=== PATIENT | male | born 1950 | race Caucasian/White ===

== ENCOUNTER 2019-04-01 16:40 | Emergency (ER) | payer MEDICARE, MEDICAID ==
[~2019-04-01] VITALS: Ht 175.3 cm; Wt 86.0 kg
[2019-04-01] MEDS ORDERED: MORPHINE SULFATE 4 MG/ML CPJ (NOT FOR IM USE) IV STA (16:55)
[2019-04-01] MEDS ORDERED: ONDANSETRON HCL 4MG/2ML INJ IV STA (16:55)
[2019-04-01] MEDS ORDERED: SODIUM CHLORIDE 0.9% 1,000 ML IV ONE (16:55)
[2019-04-01 17:17] LABS: BASOPHILS % 0.6 % (0.0-2.0); EOSINOPHILS % 1.8 % (0.0-5.0); HEMATOCRIT. 43.1 % (42.0-52.0); HEMOGLOBIN. 14.8 g/dL (14.0-18.0); LYMPHOCYTES % 28.2 % (20.0-50.0); MEAN CORPUSCULAR HEMOGLOBIN 30.6 pg (28.0-32.0); MEAN CORPUSCULAR VOLUME 89.3 fL (80.0-94.0); MEAN PLATELET VOLUME 8.3 fl (7.4-10.4); NEUTROPHILS % 62.4 % (40.0-76.0); PLATELET 262 x1000/uL (130-400); RED BLOOD CELL COUNT 4.83 mill/uL (4.7-6.1); RED CELL DISTRIBUTION WIDTH 13.6 % (11.6-14.6)
[2019-04-01 17:20] LABS: CHLORIDE 109 mEq/L (98-107)
[2019-04-01] MEDS ORDERED: LIDOCAINE 1%/EPI 1:100,000 10 ML VIAL IJ ONE (17:45)
[2019-04-01] MEDS ORDERED: LIDOCAINE HCL/EPINEPHRINE 1%-EPI 1:100,000 20 ML VIAL IJ SCH (18:00)
[2019-04-01] MEDS ORDERED: TETANUS, DIPHTHERIA, PERTUSSIS VAC/PF 0.5ML (>7YR OLD) IM ONE (18:45)
[2019-04-01 19:00] VITALS: BP 127/77
== END 2019-04-01 19:10 | disposition home or self-care (01) ==
LOC: ER 16:40
DX: S51.812A Laceration without foreign body of left forearm, initial encounter (principal); W45.8XXA Other foreign body or object entering through skin, initial encounter; W22.8XXA Striking against or struck by other objects, initial encounter; Y93.89 Activity, other specified; Y92.69 Other specified industrial and construction area as the place of occurrence of the external cause; Y99.0 Civilian activity done for income or pay
CPT/HCPCS: 13132; 13133; 36415; 71045; 73090; 80053; 83880; 84484; 85025; 90471; 90715; 93005; 96374; 96375; 99285; J2270; J2405; J3490; J7030; 12005; 13121